=== PATIENT | male | born 1995 | race African-American/Black ===

== ENCOUNTER 2025-10-24 17:34 | Emergency (ER) | payer SELFPAY ==
[~2025-10-24] VITALS: Ht 182.9 cm; Wt 78.0 kg
[2025-10-24 17:39] VITALS: O2SAT 99
[2025-10-24] MEDS: IBUPROFEN 600MG TABLET PO ONE (19:02)
[2025-10-24] MEDS ORDERED: IBUP-1455 MT (19:08)
[2025-10-24] MEDS ORDERED: LIDO700A30 TP (19:08)
[2025-10-24 19:27] VITALS: BP 120/89; PULSE 54; RESP 18; TEMP 36.9; O2SAT 100
== END 2025-10-24 19:29 | disposition home or self-care (01) ==
LOC: ER 17:34
DX: S20.20XA Contusion of thorax, unspecified, initial encounter (principal); X58.XXXA Exposure to other specified factors, initial encounter; Y93.89 Activity, other specified; Y92.89 Other specified places as the place of occurrence of the external cause; Y99.8 Other external cause status
CPT/HCPCS: 71101; 99284